=== PATIENT | female | born 1990 | race Caucasian/White ===

== ENCOUNTER 2016-12-20 18:17 | Emergency (ER) | payer MEDICAID ==
[~2016-12-20 18:17] MED LIST: ACYC400T PO; BACT800T5 PO; IBUP-232 PO; MACR100C2 PO; PHEN0.4T PO
[2016-12-20 18:19] VITALS: BP 119/70; PULSE 77; RESP 16; TEMP 98; O2SAT 96
== END 2016-12-20 19:26 | disposition left against medical advice (07) ==
LOC: NED 18:17
DX: R68.89 Other general symptoms and signs (principal)
CPT/HCPCS: 99281